=== PATIENT | female | born 1965 | race Caucasian/White ===

== ENCOUNTER 2017-02-27 07:21 | Day surgery (SDC) | payer BC ==
--- OUTSIDE RECORDS SUMMARY | 2017-02-27 07:25 | XMS REPORT | Continuity of Care Document ---
:1965 Author Organization [facility] ([facility]) Address [address] [place] [address] Phone [phone] Care Team Providers Name Role Phone StevenHodahy Primary Care Provider [phone] Source Comments This disclosure is being made pursuant to the Care Everywhere program, applicable federal and state laws, and may not contain all informaitonavailable regarding this patient.[facility] ([facility]) Active Allergies and Adverse Reactions No Known Allergies Current Medications Prescription Sig. Disp. Refills Start Date End Date Status loratadine 10 mg tablet Take 10 mg by mouth Active daily. predniSONE 10 mg tablet Take 10 mg by mouth Active pack daily. Take as directed according to package instructions. acetaminophen 500 mg Take 1,000 mg by Active capsule mouth every 6 hours as needed. POTASSIUM CHLORIDE PO Take by mouth Active daily. CALCIUM CARBONATE PO Take by mouth Active daily. ASCORBATE CALCIUM Take by mouth. 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 X-ray revealed no acute osseous findings. 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 She was coming down some stairs when she stepped on a battery that had been inadvertently placed at the bottom of the stai rs. She fell and the lateral portion of her knee hit the cell. Following that incident she initially had conservative management. Given ongoing knee pain and locking she had an MRI of the knee complet ed on 09/17/11 which was reported to show a flap tear of the posterior horn of the medial meniscus and mild chondromalacia patella and patella jas. Dr. Huber Leigh subsequently took the patient to the operative suite on 10/24/11 for left knee diagnostic and operative arthroscopy with chondroplasty of medial femoral condyle. He found a grade 3 flap tear of the medial femoral condyle and chondropl asty was performed. She saw Dr. Main for burning pain in the knee. She was placed at [facility] on 11/17/2012. 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 Her knee subsequently felt that it wanted to give- out and clicked. An MRI of the knee was repeated on 04/22/12 and was reported to show horizontal tear involving the midbody and posterior horn of the medial meniscus and she also was noted to have a small joint effusion. Ms. Blcak was taken back to the operative suite by Dr. Leigh on 05/31/12 and diagnostic and oper ative arthroscopy of the left knee with partial medial meniscectomy and chrondroplasty of the medial femoral condyle was completed. Ms. Black was healing well but in July she went to pivot and felt her knee "pop" and noticed her kneecap displaced laterally. Her kneecap returned to its normal location and she has not had a similar incident since. She was prescribed some physical therapy Problem Noted Date Encounter related to worker's compensation claim 05/14/2015 left knee 2014 Vision loss night 12/05/2012 Knee pain, left 10/13/2012 Pes anserine bursitis 10/13/2012 Patellofemoral pain syndrome 10/13/2012 Social History Tobacco Use Types Packs/Day Years Used Date Never Smoker Smokeless Tobacco: Never Used Tobacco Cessation:Counseling Given: Yes Comments: Alcohol Use Drinks/Week oz/Week Comments No Last Filed Vital Signs Vital Sign Reading Time Taken Blood Pressure 140/98 06/29/2015 10:24 AM CDT Pulse 67 06/29/2015 10:24 AM CDT Temperature 36.8 C (98.2 F) 06/29/2015 10:24 AM CDT Respiratory Rate - - Height 1.575 m (5' 2") 06/29/2015 10:24 AM CDT Weight 88.315 kg (194 lb 11.2 oz) 06/29/2015 10:24 AM CDT Body Mass Index 35.6 06/29/2015 10:24 AM CDT Oxygen Saturation - - Plan of Care Health Maintenance Due Date Last Done Comments HCV Screening 1965 Hepatitis B Vaccine (1 of 3 - Primary Series) 1965 Tdap Vaccine 1976 Lipid Disorder Screening 1983 MMR Vaccine 1983 Td Vaccine 1983 Cervical Cancer Screening 1995 Mammogram 2005 Colonoscopy 2015 Influenza Vaccine: Seasonal (#1) 05/12/2016 Results from Last 3 Months Not on file
--- NOTE | 2017-02-27 07:57 | OR ---
Anesthesia Pre Procedure Eval Date of Service: 02/27/17 Pre Procedure Evaluation: Last Vital Signs Temp 36.3 C L 02/27/17 07:32 Pulse 73 02/27/17 07:32 Resp 18 02/27/17 07:32 BP 120/85 02/27/17 07:32 Pulse Ox 99 02/27/17 07:32 Anesthesia Pre Procedure Evaluation DATE: 02/27/2017. TIME: 0750. INDICATIONS: Low back pain with right leg radiculopathy. M54.5 PAST MEDICAL HISTORY: Is a 51-year-old female with a history of low back pain and right leg radiculopathy which extends down to her right toes. This is her first epidural steroid injection. EXAM: MRI report and films were reviewed. Pain is 6/10 on pain scale at present. ASSESSMENT OF MEDICAL STATUS: O.K. to proceed with MATT. PLANNED PROCEDURE: Fluoroscopic guided epidural steroid injection L4-5. Home Medications: HOME MEDICATIONS Duloxetine HCl [Cymbalta] 60 mg PO DAILY 10/10/13 [Last Taken 05/20/14] traMADol HCL [Tramadol HCl] 50 mg PO BID PRN 10/10/13 [Last Taken 05/20/14] Levonorgestrel [Mirena] 1 each IY ONCE 02/26/17 [Last Taken Unknown] Multivitamins [Multivitamin Kahlil] 1 cap PO DAILY 02/26/17 [Last Taken Unknown] Propranolol HCl [Propranolol E.r. (Inderal LA)] 60 mg PO DAILY 02/26/17 [Last Taken 02/27/17 06:30] Carbidopa/Levodopa [Carbidopa-Levo 25-100 mg Odt] 1 each PO BID 02/27/17 [Last Taken Unknown] Topiramate [Topamax] 50 mg PO DAILY 02/27/17 [Last Taken Unknown] Topiramate [Topamax] 100 mg PO HS 02/27/17 [Last Taken Unknown]
[2017-02-27] MEDS ORDERED: IOPAMIDOL 20 ML VIAL IJ ONE ×3 (08:16→08:17)
[2017-02-27] MEDS ORDERED: LIDOCAINE HCL/PF 5 ML VIAL IJ ONE (08:16)
[2017-02-27] MEDS ORDERED: DEXAMETHASONE SOD PHOSPHATE 10 MG/ML VIAL IJ ONE (08:16)
--- NOTE | 2017-02-27 08:33 | OR ---
Anesthesia Procedure Note - Anesthesia Procedure Note Date of Service: 02/27/17 Narrative: Vital Signs - Last Taken Temp 36.3 C L 02/27/17 07:32 Pulse 73 02/27/17 07:32 Resp 18 02/27/17 07:32 BP 120/85 02/27/17 07:32 Pulse Ox 99 02/27/17 07:32 02/27/17 08:31 ANESTHESIA PROCEDURE NOTE Date of Procedure: 02/27/2017. Time of procedure: 0810. Performed by: Esteban Conner CRNA [employer] Engineer: None. Preprocedure diagnosis: Low back pain with right leg radiculopathy;M54.5. Post procedure diagnosis: Same. Procedure: Fluoroscopic guided epidural Steroid Injection L4-5. Indications: This 51-year-old female with a history of low back pain and right leg radiculopathy.. Potential risks and benefits of the procedure were discussed with the patient and consent was obtained. Findings: See below. Details of the procedure: The patient was brought back to operating room #3. The patient was then placed in the prone position to comfort. DuraPrep was applied to the patient's back. Patient was then draped in sterile fashion. Lidocaine 1% was infiltrated to the skin and subcutaneous tissues at the level of the right L4-5 interspace using fluoroscopic guidance. The epidural space was identified using a 20-gauge Tuohy needle with [id number] technique. 1 mL of Isovue contrast was then injected after negative aspiration for blood and CSF. The epidural space was outlined in the AP and lateral views. Preservative free Decadron 10 mg + 5 mL of 1% preservative-free lidocaine was administered to the epidural space after negative aspiration for blood and CSF. The Tuohy needle was removed intact. A Band-Aid was applied to the patient's back. The patient was then placed in a supine position for 5 minutes before returning to the ambulatory surgical unit. Total fluoroscopy time: 16.6 seconds. Cumulative dose: 6.57 mGy. EBL: Minimal. Fluids: N/A. Specimen: N/A. Post procedure condition: The patient tolerated the procedure well. No complications were noted. No motor weaknesses or paresthesias were noted upon discharge. Thank you for this consultation. Esteban Conner CRNA
[2017-02-27 09:03] VITALS: BP 114/76
== END 2017-02-27 07:22 | disposition home or self-care (01) ==
LOC: AMB 07:21
PROVIDERS: ATTEND Psychiatry & Neurology Neurology
PROC: 3E0S3BZ Introduction of Anesthetic Agent into Epidural Space, Percutaneous Approach (ICD-10-PCS; 2017-02-27)
PROC: 3E0S33Z Introduction of Anti-inflammatory into Epidural Space, Percutaneous Approach (ICD-10-PCS; principal; 2017-02-27 08:00)
DX: M54.5 Low back pain (principal)

== ENCOUNTER 2017-07-20 08:26 | Emergency (ER) | payer BC ==
--- NOTE | 2017-07-20 09:03 | ERNOTE ---
Abdominal HPI - General Chief Complaint: Abdominal Pain Time Seen by Provider: 07/20/17 08:47 Source: patient Exam Limitations: no limitations - Immun/Allergies/Home Medications Immunizatons: IMMUNIZATION HX Immunizations Up to Date Yes History of Influenza Vaccine No Hx Pneumococcal Vaccination No Allergies/Adverse Reactions: Allergies No Known Allergies Allergy (Verified 07/20/17 08:33) Home Medications: HOME MEDICATIONS Duloxetine HCl [Cymbalta] 60 mg PO DAILY 10/10/13 [Last Taken 05/20/14] traMADol HCL [Tramadol HCl] 50 mg PO BID PRN 10/10/13 [Last Taken 05/20/14] Levonorgestrel [Mirena] 1 each IY ONCE 02/26/17 [Last Taken Unknown] Multivitamins [Multivitamin Kahlil] 1 cap PO DAILY 02/26/17 [Last Taken Unknown] Propranolol HCl [Propranolol E.r. (Inderal LA)] 60 mg PO DAILY 02/26/17 [Last Taken 02/27/17 06:30] Carbidopa/Levodopa [Carbidopa-Levo 25-100 mg Odt] 1 each PO BID 02/27/17 [Last Taken Unknown] Topiramate [Topamax] 50 mg PO DAILY 02/27/17 [Last Taken Unknown] Topiramate [Topamax] 100 mg PO HS 02/27/17 [Last Taken Unknown] HYDROcodone/ACETAMINOPHEN [[place] 5-325] 1 each PO Q4H #20 tablet 07/20/17 [Last Taken Unknown] Linaclotide [Linzess] 72 mcg PO DAILY 07/20/17 [Last Taken Unknown] - History of Present Illness Narrative: Patient was thrown backward off of a galloping horse and 1 foot was stuck in the stirrup and patient was drug for an additional 10 yards until she got herself free. Patient now complains of abdominal pain as well as pelvic pain. Timing: constant Quality: severe Activities at Onset: activity Modifying Factors - (Worsens): Present: movement Prior Abdominal Problems: Present: recent trauma Review of Systems - Review of Systems Constitutional: Present: See HPI EYE: Present: no symptoms reported ENT: Present: no symptoms reported Respiratory: Present: no symptoms reported Cardiology: Present: no symptoms reported Gastrointestinal/Abdominal: Present: abdominal pain Genitourinary: Present: no symptoms reported Musculoskeletal: Present: other - pain in both inguinal areas Skin: Present: no symptoms reported Neurological: Present: no symptoms reported Endocrine: Present: no symptoms reported Hematologic/Lymphatic: Present: no symptoms reported Psych: Present: no symptoms reported - Patient's Past Medical History Patient History - Medical: Fibromyalgia Patient History - Cardiac/Respiratory: Aneurysm Patient History - Cancer: Skin Patient History - Surgical Procedures: Orthopedic - Social History Smoking Status: Never smoker Have you smoked in the past 12 months: No - Immunizations Immunizations Up to Date: Yes Hx Pneumococcal Vaccination: No History of Influenza Vaccine: No Physical Exam - Physical Exam General Appearance: Present: wd/wn, alert, severe distress Head Exam: Present: normal inspection, no evidence of injury Eye Exam: Normal inspection: bilateral, PERRL: bilateral Ears, Nose, Throat: Present: normal ENT inspection, H, normal pharynx Neck: Present: normal inspection, nontender Respiratory: Present: no respiratory distress, normal breath sounds, no accessory muscle use, chest nontender, lungs clear Cardiovascular/Chest: Present: regular rate, rhythm, no murmur, normal peripheral pulses Gastrointestinal/Abdominal: Present: normal bowel sounds, nondistended, soft, tenderness - patient has tenderness in both inguinal regions as well as tenderness around the area of the spleen, guarding Rectal Exam: Present: deferred Back Exam: Present: normal inspection, normal range of motion Extremity Exam: Present: normal inspection, non-tender, no edema, normal range of motion Neurological Exam: Present: alert, oriented, normal mood/affect Skin Exam: Present: normal color, warm/dry Lymphatic Exam: Present: no adenopathy ED Progress - Results and Orders Patient's Lab Results:: I have reviewed the patient's lab results. - Vital Signs Patient's Vital Signs:: I have reviewed the patient's vital signs. Vital Signs: Vital Signs 07/20/17 08:31 Temperature 36.3 C L Pulse Rate 90 Respiratory 14 Rate Blood Pressure 143/82 O2 Sat by Pulse 99 Oximetry - X-Ray X-Ray #1 X-Ray: pelvis x-ray was reviewed by me Interpretation: Reviewed by me - CT/Ultrasound CT/Ultrasound Narrative: CT of the abdomen and pelvis was reviewed by me - Progress/Reassessment Chief Complaint: Abdominal Pain Plan - Plan Plan: Good discussion with the patient regarding the rectal sheath hematoma is an patient understands to avoid any further trauma if possible. She was also told to avoid any anticoagulants in the form of aspirin, Advil, Aleve or even alcohol. Patient was instructed to follow-up with her family physician in a week and that she could use warm compresses on the area now to help the body resorb residual blood still present. Departure Clinical Impression: Hematoma - Departure Disposition: Home self-care Condition: Good Instructions: Hematoma, [id number] Referrals: Alysa Harris MD [Primary Care Provider] - Prescriptions: HYDROcodone/ACETAMINOPHEN [[place] 5-325] 1 each PO Q4H #20 tablet
[2017-07-20] MEDS ORDERED: DIATRIZOATE MEGLUMINE, SODIUM 30 ML BTL ONE (09:05)
[2017-07-20 09:08] LABS: Hematocrit 40.1 % (37.0-47.0); Hemoglobin 13.7 gm/dL (12.5-16.0); Mean Cell Volume 91.8 fl (78-100); Mean Corpuscular Hemoglobin 31.4 pg (27-31); Mean Corpuscular Hgb Conc 34.2 g/dl (32-36); Mean Platelet Volume 9.4 fl (6.0-9.5); Neutrophil % 72.8 % (42-75.0); Platelet Count 347 K/mm3 (150-450); Red Blood Count 4.37 M/mm3 (4.2-5.4); Red Cell Distribution Width 12.8 % (11.5-14.0); White Blood Count 10.9 K/mm3 (4.0-10.5)
[2017-07-20] MEDS ORDERED: DIATRIZOATE MEGLUMINE, SODIUM 30 ML BTL PO ONE (09:10)
[2017-07-20 09:22] LABS: Albumin * 4.1 gm/dl (3.4-5.0); BUN/Creatinine Ratio 22.4 (9.0-21.6); Ca. Corrected For Albumin 8.7 mg/dL (8.4-10.2); Calcium * 9.1 mg/dL (7.9-10.9); Potassium 3.9 mmol/L (3.4-4.6); Total Protein 7.8 gm/dL (6.2-8.2)
[2017-07-20 09:30] LABS: Anion Gap 15.3 mmol/L (6.8-13.8); Carbon Dioxide 24.6 mmol/L (24-32.6)
[2017-07-20 10:16] LABS: Urine Bilirubin 1 mg/dl (NEGATIVE); Urine Blood Negative /ul (NEGATIVE); Urine Ketone Large mg/dL (NEGATIVE); Urine Nitrite Negative (NEGATIVE); Urine Protein Negative (NEGATIVE); Urine Specific Gravity 1.025 SP.GR. (1.005-1.010); Urine Urobilinogen Normal (NORMAL)
[2017-07-20 10:24] LABS: Urine Appearance Clear; Urine Color Dark Yellow
[2017-07-20 10:25] LABS: Urine Bacteria TRACE; Urine RBC 0-5 /hpf (0-5); Urine WBC 0-5 /hpf (0-5)
[2017-07-20 12:29] VITALS: BP 129/90
== END 2017-07-20 12:30 | disposition home or self-care (01) ==
LOC: ER 08:26
DX: T14.8XXA Other injury of unspecified body region, initial encounter (principal); X58.XXXA Exposure to other specified factors, initial encounter; Y93.52 Activity, horseback riding; M79.7 Fibromyalgia